=== PATIENT | female | born 1995 | race Caucasian/White ===

== ENCOUNTER → 2022-01-27 08:17 | Outpatient (CLI) | payer OTHER, SELFPAY ==
[2022-01-27 10:21] LABS: Prolactin 18.3 ng/mL (3.0-18.6)
[2022-01-27 10:38] LABS: TSH w/ Reflex to FT4 0.84 uIU/mL (0.47-4.68)
[2022-01-27 11:38] LABS: Follicle Stimulating Hormone 4.02 mIU/mL; Luteinizing Hormone 7.14 mIU/mL
[2022-01-27 11:54] LABS: Estradiol, Total 24.2 pg/mL
== END ==
PROVIDERS: Referring Provider Nurse Practitioner Obstetrics & Gynecology; Visit Provider Nurse Practitioner Obstetrics & Gynecology
DX: N91.4 Secondary oligomenorrhea (principal)
CPT/HCPCS: 36415; 82670; 83001; 83002; 84146; 84443